=== PATIENT | female | born 1955 | race Caucasian/White ===

== ENCOUNTER 2019-01-25 08:44 | Day surgery (SDC) | payer BC ==
[~2019-01-25] VITALS: Ht 162.6 cm; Wt 84.4 kg
[~2019-01-25 08:44] MED LIST: ACIDOPHILUS PO; ADVIL PM 38 MG-1 TAB PO; ADVIL200 MG PO; ASPIRIN 81M81 MG/TA2 PO; B COMPLEX1 TA2 PO; CALCIUM600 M1 PO; CARDI-OMEGA1000 MG PO; CRANBERRY FRUI425 MG PO; D-31000 IU PO; IRON65 M1 PO; MULTIVITAMIN1 CTB PO; NORCO 325 MG-51 TAB PO; STOOL SOFTENER100 M2 PO; TYLENOL PM EXTR1 TA1 PO; VALIUM 2MG T2 MG/TAB PO; VITAMINC1000TA PO; ZOCOR 40MG40 MG PO
[2019-01-25 09:17] VITALS: BP 134/84; PULSE 73; TEMP 97.9
[2019-01-25] MEDS ORDERED: ASPIRIN 81M81 MG/TA2 PO (09:23)
[2019-01-25] MEDS ORDERED: VITAMIND3 5000 PO (09:23)
[2019-01-25] MEDS ORDERED: NATURAL ODORLE400 MG PO (09:24)
[2019-01-25] MEDS ORDERED: MASON NATURAL1200 MG PO (09:25)
[2019-01-25] MEDS ORDERED: CALCIUM-MAGNES1 EAC1 PO (09:26)
[2019-01-25] MEDS ORDERED: VALIUM 5MG T5 MG/TAB PO (09:47)
[2019-01-25 10:35] VITALS: BP 134/80; PULSE 67; TEMP 97.6
--- NOTE | 2019-01-25 10:35 | NUR ---
TO RM 8 PER CART FROM ENDOSCOPY. ALERT ORIENTED X3, TALKING TO STAFF AND . RECEIVED GRAPE JUICE AND MUFFIN.
[2019-01-25 10:50] VITALS: BP 120/72; PULSE 73
--- NOTE | 2019-01-25 10:50 | NUR ---
ATE 100% AND TOLERATED WELL. NO C/O PAIN OR DISCOMFORT.
[2019-01-25 11:05] VITALS: BP 102/68; PULSE 70
--- NOTE | 2019-01-25 11:05 | NUR ---
DISCONTINUED IV AND INT- CATHETER INTACT ATE 100% AND TOLERATED WELL. PATIENT GETTING DRESSED AND WAITING FOR DR ELY
--- NOTE | 2019-01-25 11:30 | NUR ---
DR ELY INTO TALK WITH PATIENT AND HER PATIENT TO BATHROOM WENT TO GET THE CAR.
--- NOTE | 2019-01-25 11:45 | NUR ---
DISCHARGED PER WC BY NURSING STAFF TO PRIVATE CAR IN CARE OF -KEEN.
== END 2019-01-25 11:45 | disposition home or self-care (01) ==
LOC: SDCO 08:44
DX: D12.0 Benign neoplasm of cecum (principal); E78.00 Pure hypercholesterolemia, unspecified
CPT/HCPCS: J2250; J2405; J3010; J7030

== ENCOUNTER → 2023-11-08 | Day surgery (SDC) | payer MEDICARE, OTHER ==
[~2023-11-08] MED LIST changes: -B COMPLEX1 TA2 PO; +BALANCE B-1001 TA1 PO; +CALCIUM-MAGNES1 EAC1 PO; +CEFTIN 250250 MG/TAB PO; +CURCUMIN95% PO; +GINGER ROOT EX250 MG PO; +MASON NATURAL1200 MG PO; +MOBIC15 MG PO; +MULTI VITAMINS1 TAB PO; -MULTIVITAMIN1 CTB PO; +NATURAL MAGNES200 MG PO; +NATURAL ODORLE400 MG PO; +PHARMASSURE ZIN50 MG PO; +VALIUM 5MG T5 MG/TAB PO; +VITAMIN K2100 MCG PO; +VITAMIND3 5000 PO
== END ==
LOC: COL.RAD 12:05
DX: E04.1 Nontoxic single thyroid nodule (principal)